=== PATIENT | male | born 1960 | race Caucasian/White ===

== ENCOUNTER → 2018-08-22 | Outpatient (CLI) | payer OTHER ==
[~2018-08-22] MED LIST: AMIT75TA PO; EZET10TA18 PO; LISI-170 PO; SUMA50TA4 PO
[2018-08-22 12:02] LABS: BASOPHILS # (AUTO) 0.08 x10^3/uL (0-0.1); BASOPHILS % (AUTO) 1 % (0-1); EOSINOPHILS # (AUTO) 0.19 x10^3/uL (0-0.4); EOSINOPHILS % (AUTO) 3 % (1-7); LYMPHOCYTES # (AUTO) 1.74 x10^3/uL (1-3.4); LYMPHOCYTES % (AUTO) 26 % (22-44); MD NO; MEAN CORPUSCULAR HEMOGLOBIN 30.1 pg (27.5-34.5); MEAN CORPUSCULAR HGB CONC 32.9 g/dL (33.2-36.2); MEAN CORPUSCULAR VOLUME 91.6 fL (81-97); MEAN PLATELET VOLUME 7.3 fL (7.4-10.4); MONOCYTES # (AUTO) 0.63 x10^3/uL (0.2-0.8); MONOCYTES % (AUTO) 9 % (2-9); NEUTROPHILS # (AUTO) 4.11 x10^3/uL (1.8-6.8); NEUTROPHILS % (AUTO) 61 % (42-75); PLATELET COUNT 291 x10^3/uL (130-400); RED CELL DISTRIBUTION WIDTH 14.4 % (9.4-14.8)
[2018-08-22 12:09] LABS: ALANINE AMINOTRANSFERASE 40 U/L (12-78); ALBUMIN 4.3 g/dL (3.4-5.0); ANION GAP 7 mmol/L (5-15); CALCIUM 9.6 mg/dL (8.5-10.1); CHLORIDE 106 mmol/L (98-107)
[2018-08-22 12:12] LABS: ALKALINE PHOSPHATASE 77 U/L (45-117); BILIRUBIN,TOTAL 0.4 mg/dL (0.2-1.0); TOTAL PROTEIN 7.8 g/dL (6.4-8.2)
== END | disposition home or self-care (01) ==
LOC: STAR 11:10
PROVIDERS: ATTEND Surgery
DX: Z01.818 Encounter for other preprocedural examination (principal)
CPT/HCPCS: 36415; 80053; 85025

== ENCOUNTER 2018-09-07 07:04 | Day surgery (SDC) | payer OTHER ==
[~2018-09-07] VITALS: Ht 175.3 cm; Wt 72.7 kg
[~2018-09-07 07:04] MED LIST changes: +BUPIVACAINE/PF 0.25% ONE; +EPINEPHRINE 1 MG/ML, 1ML ONE
[2018-09-07 07:33] VITALS: BP 143/90
[2018-09-07] MEDS ORDERED: LACTATED RINGERS 1,000 ML IV SCH (07:41)
[2018-09-07] MEDS ORDERED: FENTANYL PF 250 MCG/5ML ONE (08:09)
[2018-09-07] MEDS ORDERED: MIDAZOLAM 1 MG/ML, 2ML ONE (08:09)
[2018-09-07] MEDS ORDERED: PROPOFOL 10 MG/ML, 20ML ONE (09:04)
[2018-09-07] MEDS ORDERED: ONDANSETRON 2MG/ML, 2ML ONE (09:06)
[2018-09-07] MEDS ORDERED: DEXAMETHASONE 4 MG/ML, 1ML ONE (09:06)
[2018-09-07] MEDS ORDERED: ACETAMINOPHEN 325 MG TABLET PO PRN (09:30)
[2018-09-07] MEDS ORDERED: PROMETHAZINE 25 MG/ML, 1ML IV PRN (09:30)
[2018-09-07] MEDS ORDERED: HYDROmorphone 2 MG/ML, 1ML IVPush PRN (09:30)
[2018-09-07] MEDS ORDERED: ONDANSETRON 2MG/ML, 2ML IV PRN (09:30)
[2018-09-07] MEDS ORDERED: hydrALAzine 20 MG/ML, 1ML IV PRN (09:30)
[2018-09-07] MEDS ORDERED: FENTANYL PF 100 MCG/2ML IV PRN (09:30)
[2018-09-07] MEDS ORDERED: MEPERIDINE/PF 25MG/0.5ML IVPush PRN (09:30)
[2018-09-07] MEDS ORDERED: LABETALOL 5MG/ML, 20ML IV PRN (09:30)
[2018-09-07] MEDS ORDERED: OXYcodone 5 MG/5 ML ORAL.SOL UDC PO PRN (09:30)
[2018-09-07] MEDS ORDERED: CEFAZOLIN 1,000 MG ONE (09:31)
[2018-09-07] MEDS ORDERED: ROCURONIUM 10MG/ML,5ML ONE (09:36)
[2018-09-07] MEDS ORDERED: KETOROLAC 30 MG/1 ML ONE (11:13)
[2018-09-07] MEDS ORDERED: OXYcodone 5 MG/5 ML ORAL.SOL UDC ONE (11:45)
[2018-09-07] MEDS ORDERED: ACETAMINOPHEN 650 MG/20.3 ML UDC ONE (11:45)
== END 2018-09-07 13:25 | disposition home or self-care (01) ==
LOC: OUT 07:04
PROVIDERS: ATTEND Surgery
DX: K40.31 Unilateral inguinal hernia, with obstruction, without gangrene, recurrent (principal); I10 Essential (primary) hypertension
CPT/HCPCS: 49521; C1781; J0171; J0690; J1100; J1885; J2250; J2405; J2704; J3010; J3490; J7120

== ENCOUNTER → 2020-06-18 | Outpatient (CLI) | payer OTHER ==
[~2020-06-18] MED LIST changes: -BUPIVACAINE/PF 0.25% ONE; -EPINEPHRINE 1 MG/ML, 1ML ONE; -EZET10TA18 PO; +EZET10TA70 PO; +OMNIPAQUE 350 MG/ML, 100ML BOTTLE ONE
[2020-06-18 10:11] LABS: CREATININE 0.97 mg/dL (0.7-1.3)
== END | disposition home or self-care (01) ==
LOC: RAD 09:33
PROVIDERS: ATTEND Urology
DX: C61 Malignant neoplasm of prostate (principal); I87.8 Other specified disorders of veins; M51.36 Other intervertebral disc degeneration, lumbar region; I70.0 Atherosclerosis of aorta
CPT/HCPCS: 36415; 74177; 78306; 82565; A9503; Q9967

== ENCOUNTER → 2020-06-22 | Outpatient (CLI) | payer OTHER ==
[~2020-06-22] MED LIST changes: +GADOTERATE 7.5 MMOL/15 ML VIAL ONE; -OMNIPAQUE 350 MG/ML, 100ML BOTTLE ONE
== END | disposition home or self-care (01) ==
LOC: RAD 09:16
PROVIDERS: ATTEND Urology
DX: C61 Malignant neoplasm of prostate (principal); M48.07 Spinal stenosis, lumbosacral region
CPT/HCPCS: 72157; 72158; A9575

== ENCOUNTER → 2020-07-04 | Outpatient (CLI) | payer OTHER ==
[~2020-07-04] MED LIST changes: -GADOTERATE 7.5 MMOL/15 ML VIAL ONE
== END | disposition home or self-care (01) ==
LOC: STAR 14:06
PROVIDERS: ATTEND Urology
DX: Z01.818 Encounter for other preprocedural examination (principal); C61 Malignant neoplasm of prostate
CPT/HCPCS: 93005

== ENCOUNTER → 2020-10-16 | Outpatient (CLI) | payer OTHER ==
[~2020-10-16] MED LIST changes: +OMNIPAQUE 350 MG/ML, 100ML BOTTLE ONE
== END | disposition home or self-care (01) ==
LOC: RAD 16:13
PROVIDERS: ATTEND Surgery
DX: R10.9 Unspecified abdominal pain (principal)
CPT/HCPCS: 74177; Q9967